=== PATIENT | female | born 1930 | race Caucasian/White ===

== ENCOUNTER 2016-10-30 12:47 | Emergency (ER) | payer OTHER ==
[2016-10-30 17:59] VITALS: BP 128/78
== END 2016-10-30 17:59 | disposition home or self-care (01) ==
LOC: ED 12:47
DX: S22.059A Unspecified fracture of T5-T6 vertebra, initial encounter for closed fracture (principal); S22.089A Unspecified fracture of T11-T12 vertebra, initial encounter for closed fracture; S32.029A Unspecified fracture of second lumbar vertebra, initial encounter for closed fracture; S32.039A Unspecified fracture of third lumbar vertebra, initial encounter for closed fracture; S63.631A Sprain of interphalangeal joint of left index finger, initial encounter; K21.9 Gastro-esophageal reflux disease without esophagitis; F03.90 Unspecified dementia, unspecified severity, without behavioral disturbance, psychotic disturbance, mood disturbance, and anxiety; W05.0XXA Fall from non-moving wheelchair, initial encounter; Y93.89 Activity, other specified; Y92.099 Unspecified place in other non-institutional residence as the place of occurrence of the external cause; Y99.8 Other external cause status
CPT/HCPCS: 36415; 72072; J2405; J3010

== ENCOUNTER 2016-11-09 16:39 | Inpatient (IN) | payer OTHER ==
[~2016-11-09] VITALS: Ht 170.2 cm; Wt 60.1 kg
[2016-11-09 17:48] LABS: BASOPHIL % 0.3 % (0-2); PLATELET COUNT 316 x10^3mcL (130-400); RED CELL DISTRIBUTION WIDTH 14.3 % (11.5-14.5)
[2016-11-09 18:03] LABS: CALCIUM 8.9 mg/dL (8.5-10.1); CARBON DIOXIDE 27.6 mmol/L (21-32); CHLORIDE SERUM 110 mmol/L (98-107); CREATININE SERUM 0.6 mg/dL (0.6-1.0); GLUCOSE SERUM 103 mg/dL (74-106); POTASSIUM SERUM 3.8 mmol/L (3.5-5.1); SODIUM SERUM 145 mmol/L (136-145)
[2016-11-09 18:14] LABS: ALBUMIN 3.4 g/dL (3.4-5.0); ALKALINE PHOSPHATASE 110 U/L (46-116); ALT/SGPT 35 U/L (14-59); AST/SGOT 29 U/L (15-37); BILIRUBIN TOTAL 0.41 mg/dL (0.20-1.00)
[2016-11-09 18:17] LABS: CK-MB 2.4 ng/mL (0-3.6)
[2016-11-09] MEDS ORDERED: NORCO1 TA2 (19:25)
[2016-11-09] MEDS ORDERED: ATIVAN0.5 M1 (19:25)
[2016-11-09] MEDS ORDERED: ATIVAN1 MG PO (20:23)
[2016-11-09] MEDS ORDERED: MORPHINE SULFAT15 M7 PO (20:24)
[2016-11-09 20:51] LABS: MAGNESIUM 2.3 mg/dL (1.8-2.4)
[2016-11-09 21:00] VITALS: BP 171/103
[2016-11-09 21:00] LABS: CHOLESTEROL/HDL RATIO 2.3
[2016-11-09 21:05] LABS: FREE T4 1.4 ng/dL (0.76-1.46); FREE THYROXINE INDEX 3.4 ug/dL (1.4-4.5); T4(THYROXINE) 9.6 ug/dL (4.7-13.3)
[2016-11-09 21:29] LABS: T3 TOTAL 1.07 ng/mL
[2016-11-09] MEDS ORDERED: DONEPEZIL HYDRO10 M2 PO (22:29)
[2016-11-09 22:45] VITALS: BP 106/63
[2016-11-10 01:19] VITALS: BP 170/102
[2016-11-10] MEDS ORDERED: TEMAZEPAM15 MG PO (02:38)
[2016-11-10] MEDS ORDERED: FOSAMAX70 M1 PO (02:38)
[2016-11-10] MEDS ORDERED: THEM PO (02:39)
[2016-11-10] MEDS ORDERED: COLACE100 MG PO (02:40)
[2016-11-10] MEDS ORDERED: NATURE'S BLEND500 M3 PO (02:41)
[2016-11-10] MEDS ORDERED: MIRTAZAPINE30 M2 PO (02:42)
[2016-11-10] MEDS ORDERED: NUEDEXTA1 CAP PO (02:43)
[2016-11-10] MEDS ORDERED: PHARMASSURE VI500 MG PO (02:47)
[2016-11-10] MEDS ORDERED: PRILOSEC OTC20 M1 PO (02:48)
[2016-11-10] MEDS ORDERED: MOM PO (02:49)
[2016-11-10] MEDS ORDERED: BISACODYL10 MG RC (02:50)
[2016-11-10] MEDS ORDERED: OLANZAPINE10 MG PO (02:51)
[2016-11-10] MEDS ORDERED: NORCO1 TA1 PO (02:52)
[2016-11-10 06:01] LABS: BASOPHIL % 0.2 % (0-2); PLATELET COUNT 342 x10^3mcL (130-400); RED CELL DISTRIBUTION WIDTH 14.3 % (11.5-14.5)
[2016-11-10 06:29] VITALS: BP 171/102
[2016-11-10 06:33] LABS: CALCIUM 9.1 mg/dL (8.5-10.1); CARBON DIOXIDE 26.1 mmol/L (21-32); CHLORIDE SERUM 107 mmol/L (98-107); CREATININE SERUM 0.6 mg/dL (0.6-1.0); GLUCOSE SERUM 112 mg/dL (74-106); MAGNESIUM 2.1 mg/dL (1.8-2.4); PHOSPHOROUS 2.9 mg/dL (2.5-4.9); POTASSIUM SERUM 3.4 mmol/L (3.5-5.1); SODIUM SERUM 144 mmol/L (136-145)
[2016-11-10 10:00] VITALS: BP 128/66
[2016-11-10 13:46] VITALS: BP 145/79
[2016-11-10 16:06] VITALS: Ht 170.2 cm; Wt 60.1 kg
[2016-11-10 17:59] VITALS: BP 159/98
[2016-11-10 19:51] LABS: microscopic required? YES; urine erythrocyte TRACE (NEGATIVE)
[2016-11-10 22:00] VITALS: BP 153/91
[2016-11-11 06:10] VITALS: BP 148/98
[2016-11-11 06:17] LABS: CALCIUM 8.6 mg/dL (8.5-10.1); CARBON DIOXIDE 26.6 mmol/L (21-32); CHLORIDE SERUM 105 mmol/L (98-107); CREATININE SERUM 0.5 mg/dL (0.6-1.0); GLUCOSE SERUM 121 mg/dL (74-106); PHOSPHOROUS 3.3 mg/dL (2.5-4.9); POTASSIUM SERUM 3.1 mmol/L (3.5-5.1); SODIUM SERUM 139 mmol/L (136-145)
[2016-11-11 06:48] LABS: BASOPHIL % 0.2 % (0-2); PLATELET COUNT 348 x10^3mcL (130-400); RED CELL DISTRIBUTION WIDTH 14.1 % (11.5-14.5)
[2016-11-11 10:25] VITALS: BP 159/114
[2016-11-11 14:01] VITALS: BP 134/74
[2016-11-11 18:57] VITALS: BP 150/99
[2016-11-11 22:44] VITALS: BP 149/76
[2016-11-12 06:32] LABS: BASOPHIL % 0.5 % (0-2); PLATELET COUNT 344 x10^3mcL (130-400); RED CELL DISTRIBUTION WIDTH 14.2 % (11.5-14.5)
[2016-11-12 07:00] VITALS: BP 127/78
[2016-11-12 07:00] LABS: CALCIUM 8.8 mg/dL (8.5-10.1); CARBON DIOXIDE 26.1 mmol/L (21-32); CHLORIDE SERUM 108 mmol/L (98-107); CREATININE SERUM 0.6 mg/dL (0.6-1.0); GLUCOSE SERUM 109 mg/dL (74-106); PHOSPHOROUS 3.6 mg/dL (2.5-4.9); POTASSIUM SERUM 3.7 mmol/L (3.5-5.1); SODIUM SERUM 142 mmol/L (136-145)
[2016-11-12 09:59] VITALS: BP 134/89
[2016-11-12 14:00] VITALS: BP 131/78
[2016-11-12] MEDS ORDERED: THERAGRAN-M1 TA4 PO (16:45)
[2016-11-12] MEDS ORDERED: VITC PO (16:45)
[2016-11-12] MEDS ORDERED: LAC PO (17:11)
[2016-11-12] MEDS ORDERED: PEN250 PO (17:11)
== END 2016-11-12 19:05 | DRG 40 ==
LOC: ED 16:39 → DU 19:10
PROVIDERS: Emergency Medicine; ADMIT Family Medicine
PROC: 0JB70ZZ Excision of Back Subcutaneous Tissue and Fascia, Open Approach (ICD-10-PCS; principal; 2016-11-10)
DX: G30.9 Alzheimer's disease, unspecified (principal); N17.0 Acute kidney failure with tubular necrosis; G93.41 Metabolic encephalopathy; L89.153 Pressure ulcer of sacral region, stage 3; M80.88XA Other osteoporosis with current pathological fracture, vertebra(e), initial encounter for fracture; S63.691A Other sprain of left index finger, initial encounter; L89.122 Pressure ulcer of left upper back, stage 2; F02.80 Dementia in other diseases classified elsewhere, unspecified severity, without behavioral disturbance, psychotic disturbance, mood disturbance, and anxiety; F32.9 Major depressive disorder, single episode, unspecified; E86.0 Dehydration; J43.8 Other emphysema; F48.2 Pseudobulbar affect; K21.9 Gastro-esophageal reflux disease without esophagitis; Z91.81 History of falling; W17.89XA Other fall from one level to another, initial encounter; Y93.89 Activity, other specified; Y92.89 Other specified places as the place of occurrence of the external cause; Z99.3 Dependence on wheelchair; Z68.20 Body mass index [BMI] 20.0-20.9, adult
CPT/HCPCS: 83880; 84439; 97110-GP; 97116-GP; 97530-GP; J0696; J1885; J2001; J2060; J3480; J3490; J7030; Q0092

== ENCOUNTER 2018-05-04 15:32 | Observation (INO) | payer OTHER ==
[~2018-05-04] VITALS: Ht 180.3 cm; Wt 62.8 kg
[~2018-05-04 15:32] MED LIST: ATIVAN0.5 M1; ATIVAN1 MG PO; BISACODYL10 MG RC; COLACE100 MG PO; DONEPEZIL HYDRO10 M2 PO; FOSAMAX70 M1 PO; LAC PO; MIRTAZAPINE30 M2 PO; MOM PO; MORPHINE SULFAT15 M7 PO; NATURE'S BLEND500 M3 PO; NORCO1 TA1 PO; NORCO1 TA2; NUEDEXTA1 CAP PO; OLANZAPINE10 MG PO; PEN250 PO; PHARMASSURE VI500 MG PO; PRILOSEC OTC20 M1 PO; TEMAZEPAM15 MG PO; THEM PO; THERAGRAN-M1 TA4 PO; VITC PO
[2018-05-04 15:37] VITALS: Ht 180.3 cm; Wt 62.8 kg
[2018-05-04] MEDS ORDERED: COLACE100 MG PO (21:35)
[2018-05-04] MEDS ORDERED: Z PO (21:37)
[2018-05-04] MEDS ORDERED: NAMENDA10 M2 PO (21:37)
[2018-05-04 22:36] VITALS: BP 154/87
[2018-05-05 05:54] VITALS: BP 143/71
[2018-05-05 07:33] LABS: BASOPHIL % 0.2 % (0-2); PLATELET COUNT 187 x10^3mcL (130-400); RED CELL DISTRIBUTION WIDTH 14.4 % (11.5-14.5)
[2018-05-05 08:07] LABS: ALKALINE PHOSPHATASE 56 U/L (46-116); ALT/SGPT 24 U/L (14-59); AST/SGOT 25 U/L (15-37); BILIRUBIN TOTAL 0.54 mg/dL (0.20-1.00); CALCIUM 8.4 mg/dL (8.5-10.1); CARBON DIOXIDE 30.4 mmol/L (21-32); CHLORIDE SERUM 108 mmol/L (98-107); CREATININE SERUM 0.6 mg/dL (0.6-1.0); GLUCOSE SERUM 88 mg/dL (74-106); POTASSIUM SERUM 3.9 mmol/L (3.5-5.1); SODIUM SERUM 145 mmol/L (136-145); TOTAL PROTEIN, SERUM 6.2 g/dL (6.4-8.2)
[2018-05-05 08:26] LABS: ALBUMIN 3.2 g/dL (3.4-5.0)
[2018-05-05 09:35] VITALS: BP 113/72
[2018-05-05 11:00] VITALS: BP 113/72
== END 2018-05-05 15:16 | DRG 552 ==
LOC: ED 15:32 → MU 21:10
PROVIDERS: Internal Medicine
DX: M50.30 Other cervical disc degeneration, unspecified cervical region (principal); G30.9 Alzheimer's disease, unspecified; F02.80 Dementia in other diseases classified elsewhere, unspecified severity, without behavioral disturbance, psychotic disturbance, mood disturbance, and anxiety; F41.9 Anxiety disorder, unspecified; F32.9 Major depressive disorder, single episode, unspecified; M47.892 Other spondylosis, cervical region; M40.292 Other kyphosis, cervical region; Z96.643 Presence of artificial hip joint, bilateral; Z91.81 History of falling
CPT/HCPCS: G0378; J1630; J1644; J2060; Q0092